=== PATIENT | female | born 2000 | race Caucasian/White ===

== ENCOUNTER 2020-07-30 08:24 | Outpatient (CLI) | payer BC ==
[~2020-07-30] VITALS: Ht 157.5 cm; Wt 75.1 kg
[2020-07-30] MEDS ORDERED: TOPROL XL 25MG25 MG PO (08:54)
[2020-07-30 09:28] VITALS: BP 127/60; PULSE 89; TEMP 98.7
[2020-07-30 09:38] LABS: PROTHROMBIN TIME 11.4 SECONDS (9.7-12.8)
[2020-07-30 09:47] LABS: HEMATOCRIT 42.5 % (35.0-45.0); HEMOGLOBIN 14.6 g/dl (12.0-15.0); MEAN CELL VOLUME 91 fl (80.0-95.0); MEAN CORPUSCULAR HEMOGLOBIN 31 pg (26.0-32.0); MEAN CORPUSCULAR HGB CONC 34 g/dl (33.0-37.0); MEAN PLATELET VOLUME 11.1 fl (7.4-10.4); PLATELET COUNT 217 K/mm3 (130-400); RED BLOOD COUNT 4.66 M/mm3 (4.10-5.30); REDCELL DISTRIBUTION WIDTH-CV 12.6 % (11.5-14.5)
[2020-07-30 09:54] LABS: CALCIUM 10.1 mg/dL (8.4-10.2); CREATININE, serum 0.62 (0.52-1.25); POTASSIUM 3.8 mmol/L (3.4-5.0)
[2020-07-30 10:38] VITALS: BP 108/55; PULSE 81
[2020-07-30 10:45] VITALS: BP 114/74; PULSE 82
[2020-07-30 11:00] VITALS: BP 122/67; PULSE 84
--- NOTE | 2020-07-30 11:22 | NUR ---
Discharge instructions gien to pt.Pt verbalizes understanding.INT removed,catheter tip intact.
[2020-07-30 11:30] VITALS: BP 127/58; PULSE 73
--- NOTE | 2020-07-30 11:40 | NUR ---
DC instructions reviewed with pt, she expresses understanding. IVs DCd with catheters intact. She is assisted out to mother's car by wheelchair with personal belongings. She has tolereated PO without issue.
== END 2020-07-30 11:41 | disposition home or self-care (01) ==
LOC: COL.RAD 08:24
PROVIDERS: Internal Medicine Cardiovascular Disease
DX: I47.1 Supraventricular tachycardia (principal); I49.8 Other specified cardiac arrhythmias
CPT/HCPCS: J2704